=== PATIENT | female | born 1950 | race Caucasian/White ===

== ENCOUNTER 2017-09-03 10:08 | Emergency (ER) | payer BC, OTHER ==
[2017-09-03 10:13] VITALS: BMI 31.1
--- NOTE | 2017-09-03 10:27 | PDOC ---
History of Present Illness - General History Source: Patient Exam Limitations: No Limitations - History of Present Illness Initial Comments: 09/03/17 10:45 The patient is a 67 year old female, with a significant past medical history of HTN (on 15 mg Metoprolol), Anxiety and Depression who presents to the emergency department with cough and SOB for the past 5 days. Patient reports productive cough (yellow sputum) with difficulty breathing. Patient did not received this year's Flu vaccine. Patient denies any relief from OTC medications and presents to the ED for further evaluation. Upon evaluation, patients vital signs significant for 93% O2 saturation. Patient denies chest pain, headache or dizziness. Patient denies fever, chills, abdominal pain, nausea, vomit, diarrhea or constipation. Patient denies dysuria , frequency, urgency or hematuria. Patient denies sick contacts or recent travel. Allergies: NKA Past surgical history: Tubal ligation Social history: Everyday smoker PCP: None <Deann Billings - Last Filed: 09/03/17 10:45> <Edson Carrion - Last Filed: 09/03/17 14:03> - General Chief Complaint: Shortness of Breath Stated Complaint: RESPIRATORY Time Seen by Provider: 09/03/17 10:24 Past History <Deann Billings - Last Filed: 09/03/17 10:45> - Past Medical History COPD: No HTN: Yes Psychiatric Problems: Yes (ANXIETY, DEPRESSION) - Suicide/Smoking/Psychosocial Hx Smoking History: Current every day smoker Have you smoked in the past 12 months: Yes Number of Cigarettes Smoked Daily: 20 Information on smoking cessation initiated: Yes 'Breaking Loose' booklet given: 09/03/17 Hx Alcohol Use: No Drug/Substance Use Hx: No Substance Use Type: None <Edson Carrion - Last Filed: 09/03/17 14:03> - Past Medical History Allergies/Adverse Reactions: Allergies Allergy/AdvReac Type Severity Reaction Status Date / Time No Known Allergies Allergy Verified 09/03/17 10:10 Home Medications: Ambulatory Orders Escitalopram Oxalate [Lexapro -] 15 mg PO DAILY 07/27/14 Alprazolam [Xanax] 0.5 mg PO DAILY 09/03/17 Aspirin [ASA -] 81 mg PO DAILY 09/03/17 Lisinopril 10 mg PO HS 09/03/17 Metoprolol Succinate [Toprol Xl] 50 mg PO DAILY 09/03/17 Review of Systems - Review of Systems Able to Perform ROS?: Yes Comments:: 09/03/17 10:45 GENERAL/CONSTITUTIONAL: No fever or chills. No weakness. HEAD, EYES, EARS, NOSE AND THROAT: No change in vision. No ear pain or discharge. No sore throat. CARDIOVASCULAR: No chest pain. RESPIRATORY: + cough. +SOB. + wheezing. No hemoptysis. GASTROINTESTINAL: No nausea, vomiting, diarrhea or constipation. GENITOURINARY: No dysuria, frequency, or change in urination. MUSCULOSKELETAL: No joint or muscle swelling or pain. No neck or back pain. SKIN: No rash NEUROLOGIC: No headache, vertigo, loss of consciousness, or change in strength/ sensation. ENDOCRINE: No increased thirst. No abnormal weight change. HEMATOLOGIC/LYMPHATIC: No anemia, easy bleeding, or history of blood clots. ALLERGIC/IMMUNOLOGIC: No hives or skin allergy. <Deann Billings - Last Filed: 09/03/17 10:45> *Physical Exam - Vital Signs Last Vital Signs Temp Pulse Resp BP Pulse Ox 98.3 F 77 18 169/76 93 L 09/03/17 10:10 09/03/17 10:10 09/03/17 10:10 09/03/17 10:10 09/03/17 10:10 - Physical Exam Comments: 09/03/17 10:45 GENERAL: Awake, alert, and fully oriented, in no acute distress HEAD: No signs of trauma EYES: PERRLA, EOMI, sclera anicteric, conjunctiva clear ENT: Auricles normal inspection, hearing grossly normal, nares patent, oropharynx clear without exudates. Moist mucosa NECK: Normal ROM, supple, no lymphadenopathy, JVD, or masses LUNGS: +Wheezing bilaterally. Breath sounds equal. No crackles. HEART: Regular rate and rhythm, normal S1 and S2, no murmurs, rubs or gallops ABDOMEN: Soft, nontender, normoactive bowel sounds. No guarding, no rebound. No masses EXTREMITIES: Normal range of motion, no edema. No clubbing or cyanosis. No cords, erythema, or tenderness NEUROLOGICAL: Cranial nerves II through XII grossly intact. Normal speech, normal gait SKIN: Warm, Dry, normal turgor, no rashes or lesions noted. <Deann Billings - Last Filed: 09/03/17 10:45> - Vital Signs Last Vital Signs Temp Pulse Resp BP Pulse Ox 98.3 F 77 18 169/76 93 L 09/03/17 10:10 09/03/17 10:10 09/03/17 10:10 09/03/17 10:10 09/03/17 10:10 <Edson Carrion - Last Filed: 09/03/17 14:03> ED Treatment Course - LABORATORY CBC & Chemistry Diagram: 09/03/17 10:50 09/03/17 11:20 <Edson Carrion - Last Filed: 09/03/17 14:03> *DC/Admit/Observation/Transfer - Attestations Scribe Attestion: 09/03/17 10:45 Documentation prepared by Deann Billings, acting as medical apparatus model maker for Edson Carrion DO. <Deann Billings - Last Filed: 09/03/17 10:45> - Discharge Dispostion Admit: No - Attestations Physician Attestion: 09/03/17 10:26 I, Dr. Edson Carrion, attest that this document has been prepared under my direction and personally reviewed by me in its entirety. I further attest, that it accurately reflects all work, treatment, procedures and medical decision -making performed by me. <Edson Carrion - Last Filed: 09/03/17 14:03> Diagnosis at time of Disposition: Acute bronchitis Qualifiers: Bronchitis organism: other organism Qualified Code(s): J20.8 - Acute bronchitis due to other specified organisms - Discharge Dispostion Disposition: HOME Condition at time of disposition: Improved - Referrals Referrals: Guillermo Washington MD [Primary Care Provider] - - Patient Instructions Printed Discharge Instructions: DI for Acute Bronchitis Additional Instructions: Mrs Berman- Sorry that you are not feeling well. Cut back or quit the cigarettes. Finish both the Z-pack and the Medrol Dose pack. Return to us if worse. Follow up with your doctor later this week. Best- Dr. Edson Carrion
[2017-09-03] MEDS ORDERED: ALBUTEROL SO4 0.083% IH SOL 2.5 MG/3 ML VIAL.NEB. NEB ONE ×2 (10:40→11:38)
[2017-09-03] MEDS ORDERED: ALBUTEROL SO4 2.5/IPRATROPIUM 0.5 INH SOL 3 ML VIAL.NEB. NEB ONE ×2 (10:40→10:52)
[2017-09-03] MEDS ORDERED: methylPREDNISolone NA SUCC 125 MG/2 ML VIAL IVPUSH ONE (10:40)
[2017-09-03 10:52] VITALS: PULSE 75
[2017-09-03] MEDS ORDERED: methylPREDNISolone NA SUCC 125 MG/2 ML VIAL ONE (10:52)
[2017-09-03 11:27] LABS: BASOPHIL 0.7 % (0-2.0); EOSINOPHIL 2.2 % (0-4.5); MCH 32.3 pg (25.7-33.7); MCHC 33.6 g/dl (32.0-36.0); MEAN PLT VOLUME 8.2 fl (7.5-11.1); PLATELET COUNT 168 K/MM3 (134-434); RDW 13.4 % (11.6-15.6); WHITE BLOOD COUNT 9.4 K/mm3 (4.0-10.0)
[2017-09-03 11:52] LABS: ALBUMIN 3.6 g/dl (3.4-5.0); ANION GAP 5 (8-16); BILIRUBIN,TOTAL 0.6 mg/dL (0.2-1.0); CALCIUM 8.9 mg/dL (8.5-10.1); CO2 29 mmol/L (21-32); CREATININE 0.9 mg/dL (0.55-1.02); GLUCOSE,RANDOM 93 mg/dL (74-106); SGOT/AST 23 U/L (15-37); SGPT/ALT 29 U/L (12-78); TOT PROT 7.5 g/dl (6.4-8.2)
[2017-09-03 11:53] LABS: ALK PHOS 110 U/L (45-117)
[2017-09-03 13:55] VITALS: BP 131/78; TEMP 97.8
[2017-09-03] MEDS ORDERED: AZITHROMYCIN 250 MG TABLET PO ONE (13:58)
[2017-09-03] MEDS ORDERED: CEFTRIAXONE 1 GM in DEXTROSE 5%-WATER - 50 ML IVPB ONE (13:59)
[2017-09-03] MEDS ORDERED: CEFTRIAXONE 1 GM/50 ML BAG ONE (14:01)
[2017-09-03] MEDS ORDERED: AZITHROMYCIN 250 MG TABLET ONE (14:01)
== END 2017-09-03 14:43 | disposition home or self-care (01) ==
LOC: JER 10:08
PROC: 3E03329 Introduction of Other Anti-infective into Peripheral Vein, Percutaneous Approach (ICD-10-PCS; principal; 2017-09-03)
PROC: 3E033GC Introduction of Other Therapeutic Substance into Peripheral Vein, Percutaneous Approach (ICD-10-PCS; 2017-09-03)
PROC: 3E0337Z Introduction of Electrolytic and Water Balance Substance into Peripheral Vein, Percutaneous Approach (ICD-10-PCS; 2017-09-03)
PROC: 3E0F7GC Introduction of Other Therapeutic Substance into Respiratory Tract, Via Natural or Artificial Opening (ICD-10-PCS; 2017-09-03)
DX: J20.8 Acute bronchitis due to other specified organisms (principal); I10 Essential (primary) hypertension; F41.8 Other specified anxiety disorders
CPT/HCPCS: 36415; 71020-TC; 80053; 85025; 87040; 87804; 94640; 96365; 96375; 99284-25

== ENCOUNTER 2019-03-24 12:14 | Emergency (ER) | payer BC, OTHER ==
[2019-03-24 12:29] VITALS: BP 158/65; PULSE 80; TEMP 98.4; BMI 36.3
[2019-03-24] MEDS ORDERED: ALBUTEROL SO4 0.083% IH SOL 2.5 MG/3 ML VIAL.NEB. NEB ONE ×2 (12:39→12:57)
[2019-03-24] MEDS ORDERED: SODIUM CHLORIDE FOR INHALATION 3 ML VIAL.NEB IH ONE (12:39)
--- NOTE | 2019-03-24 12:46 | PDOC ---
History of Present Illness - General Chief Complaint: Respiratory Stated Complaint: Cold Symptoms Time Seen by Provider: 03/24/19 12:35 History Source: Patient (cough X 1wk) Exam Limitations: No Limitations - History of Present Illness Associated Symptoms: reports: cough, wheezing. denies: chest pain/soreness, dizziness, fever/chills, headache, lightheadedness, muscle aches, nasal congestion, nasal drainage, shortness of breath, sinus infection, sore throat Past History - Travel Traveled outside of the country in the last 30 days: No Close contact w/someone who was outside of country & ill: No - Past Medical History Allergies/Adverse Reactions: Allergies Allergy/AdvReac Type Severity Reaction Status Date / Time No Known Allergies Allergy Verified 03/24/19 12:29 Home Medications: Ambulatory Orders Escitalopram Oxalate [Lexapro -] 10 mg PO DAILY 07/27/14 Alprazolam [Xanax] 0.5 mg PO DAILY 09/03/17 Aspirin [ASA -] 81 mg PO DAILY 09/03/17 Lisinopril 10 mg PO HS 09/03/17 Metoprolol Succinate [Toprol Xl] 50 mg PO DAILY 09/03/17 Atorvastatin Ca [Lipitor] 40 mg PO HS 03/24/19 Azithromycin [Zithromax -] 250 mg PO UTDICT #6 tab 03/24/19 Benzonatate [Tessalon Pearls -] 100 mg PO TID #21 capsule 03/24/19 Chlorthalidone 25 mg PO DAILY 03/24/19 Levothyroxine [Synthroid -] 75 mcg PO DAILY 03/24/19 COPD: No HTN: Yes Hypercholesterolemia: Yes Psychiatric Problems: Yes (ANXIETY, DEPRESSION) - Suicide/Smoking/Psychosocial Hx Smoking History: Unknown if ever smoked Have you smoked in the past 12 months: Yes Number of Cigarettes Smoked Daily: 20 'Breaking Loose' booklet given: 09/03/17 Hx Alcohol Use: No Drug/Substance Use Hx: No Substance Use Type: None Review of Systems - Review of Systems Is the patient limited Azeri proficient: No Constitutional: No: Chills, Fever Respiratory: Yes: Cough, Wheezing, Productive cough. No: Orthopnea, Shortness of Breath, SOB with Exertion, Stridor Cardiac (ROS): No: Chest Pain, Irregular Heart Rate, Lightheadedness, Palpitations, Chest Tightness ABD/GI: No: Abdominal Distended, Nausea, Vomiting Neurological: No: Headache, Numbness, Paresthesia, Tingling, Unsteady Gait, Dizziness Endocrine: No: Excessive Sweating *Physical Exam - Vital Signs Last Vital Signs Temp Pulse Resp BP Pulse Ox 98.4 F 80 18 158/65 95 03/24/19 12:27 03/24/19 12:27 03/24/19 12:27 03/24/19 12:27 03/24/19 12:27 - Physical Exam General Appearance: Yes: Nourished HEENT: positive: EOMI, MED, TMs Normal Respiratory/Chest: positive: Wheezing (inspiratory wheezing noted in lower lung base) Cardiovascular: positive: Regular Rhythm, Regular Rate, S1, S2 Musculoskeletal: positive: Normal Inspection Integumentary: positive: Normal Color 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 pt is here with worsening cough exam consistent with inspiratory wheeze xray nebs CXR neg for PNA pt reassess, wheezing resolved, prednisone given Rx for zpak sent to pharmacy 03/24/19 13:32 *DC/Admit/Observation/Transfer Diagnosis at time of Disposition: Bronchitis - Discharge Dispostion Disposition: HOME - Prescriptions Prescriptions: Azithromycin [Zithromax -] 250 mg PO UTDICT #6 tab Benzonatate [Tessalon Pearls -] 100 mg PO TID #21 capsule - Referrals Referrals: Guillermo Washington MD [Primary Care Provider] - - Patient Instructions Printed Discharge Instructions: DI for Acute Bronchitis Additional Instructions: Your chest xray was negative for pneumonia today please take medication as prescribed Use inhaler if wheezing occurs as previously directly Increase hydration Follow up with your PCP Return to the ER If worsening symptoms occurs. - Post Discharge Activity
[2019-03-24] MEDS ORDERED: predniSONE 20 MG TABLET (UD) PO ONE (13:29)
[2019-03-24] MEDS ORDERED: predniSONE 20 MG TABLET (UD) ONE (13:30)
== END 2019-03-24 13:45 | disposition home or self-care (01) ==
LOC: JERFT 12:14
PROC: 3E0F7GC Introduction of Other Therapeutic Substance into Respiratory Tract, Via Natural or Artificial Opening (ICD-10-PCS; principal; 2019-03-24)
PROC: 3E0F7GC Introduction of Other Therapeutic Substance into Respiratory Tract, Via Natural or Artificial Opening (ICD-10-PCS; 2019-03-24)
DX: J40 Bronchitis, not specified as acute or chronic (principal); I10 Essential (primary) hypertension; E78.00 Pure hypercholesterolemia, unspecified; F41.9 Anxiety disorder, unspecified; F32.9 Major depressive disorder, single episode, unspecified
CPT/HCPCS: 71046-TC-FY; 94640; 99281-25

== ENCOUNTER 2022-01-12 19:20 | Inpatient (IN) | payer BC, OTHER ==
[2022-01-12] MEDS ORDERED: ACETAMINOPHEN 1000 MG/100 ML BAG IVPB ONE (19:57)
[2022-01-12] MEDS ORDERED: ACETAMINOPHEN INJECTION 100 ML IVPB ONE (20:08)
[2022-01-12] MEDS ORDERED: morphine SULFATE 4 MG/ML VIAL ONE (20:41)
[2022-01-12] MEDS: morphine CARPU-JECT 4 MG/1 ML DISP.SYRIN IVPUSH PRN (20:44)
[2022-01-12 20:52] LABS: HEMATOCRIT 36.5 % (32.4-45.2); HEMOGLOBIN 12.6 GM/dL (10.7-15.3); MCH 33.2 pg (25.7-33.7); MCHC 34.5 g/dl (32.0-36.0); MEAN CELL VOLUME 96.2 fl (80-96); MEAN PLT VOLUME 8.3 fl (7.5-11.1); PLATELET COUNT 125 10^3/uL (134-434); RDW 14.3 % (11.6-15.6); WHITE BLOOD COUNT 7.2 K/mm3 (4.0-10.0)
[2022-01-12 21:00] LABS: INR 1.21 (0.83-1.09); PROTHROMBIN TIME (PATIENT) 13.9 SEC (9.7-13.0)
[2022-01-12 21:13] LABS: CALCIUM 8.8 mg/dL (8.5-10.1)
[2022-01-12 21:14] LABS: ALBUMIN 4.2 g/dl (3.4-5.0)
[2022-01-12 21:16] LABS: CREATININE 0.8 mg/dL (0.55-1.3)
[2022-01-12 21:18] LABS: BILIRUBIN,TOTAL 1.4 mg/dL (0.2-1); TOT PROT 7.8 g/dl (6.4-8.2)
[2022-01-12] MEDS ORDERED: morphine CARPU-JECT 2 MG/1 ML DISP.SYRIN IVPUSH ONE (21:36)
[2022-01-12] MEDS ORDERED: HYDROmorphone HCl 2 MG/ML VIAL IVPUSH PRN (22:43)
[2022-01-12] MEDS ORDERED: LACTATED RINGERS SOLUTION 1,000 ML IV SCH (22:45)
[2022-01-12] MEDS ORDERED: ACETAMINOPHEN 1000 MG/100 ML BAG IVPB PRN (22:52)
[2022-01-12] MEDS ORDERED: ATORVASTATIN CA 40 MG TABLET (FP) PO SCH (22:58)
[2022-01-12] MEDS ORDERED: LISINOPRIL 10 MG TABLET PO SCH (22:58)
[2022-01-13] MEDS: morphine CARPU-JECT 4 MG/1 ML DISP.SYRIN IVPUSH PRN (01:27)
[2022-01-13 02:34] VITALS: BMI 35.5
[2022-01-13 07:04] LABS: BASO % 0.7 % (0-2.0); HEMATOCRIT 32.4 % (32.4-45.2); HEMOGLOBIN 11.5 GM/dL (10.7-15.3); LYMPH % 18.2 % (8-40); MCH 34.1 pg (25.7-33.7); MCHC 35.5 g/dl (32.0-36.0); MEAN CELL VOLUME 95.8 fl (80-96); MEAN PLT VOLUME 8.2 fl (7.5-11.1); MONO % 14.5 % (3.8-10.2); NEUT % 65.6 % (42.8-82.8); PLATELET COUNT 98 10^3/uL (134-434); RBC 3.38 M/mm3 (3.60-5.2); RDW 14.1 % (11.6-15.6); WHITE BLOOD COUNT 5.2 K/mm3 (4.0-10.0)
[2022-01-13] MEDS: morphine SULFATE 4 MG/ML VIAL IVPUSH PRN ×3 (07:04→20:21)
[2022-01-13 07:39] LABS: CALCIUM 8.5 mg/dL (8.5-10.1)
[2022-01-13 07:40] LABS: ALBUMIN 3.8 g/dl (3.4-5.0); BLOOD UREA NITROGEN 15.1 mg/dL (7-18); MAGNESIUM 1.3 mg/dL (1.8-2.4); PHOSPHOROUS 3.2 mg/dL (2.5-4.9)
[2022-01-13 07:41] LABS: BILIRUBIN,TOTAL 1.3 mg/dL (0.2-1)
[2022-01-13 07:43] LABS: CREATININE 0.8 mg/dL (0.55-1.3)
[2022-01-13] MEDS ORDERED: SODIUM CHLORIDE 1,000 ML IV SCH ×2 (08:30→17:37)
[2022-01-13] MEDS: MAGNESIUM SULF 50% (8.12 MEQ/2 ML-1 GM VIAL) IVPB SCH ×2 (08:54→11:21)
[2022-01-13] MEDS ORDERED: POLYETHYLENE GLYCOL (HEALTHYLAX) 3350 17 GM PACKET PO SCH (10:00)
[2022-01-13] MEDS ORDERED: amLODIPine BESYLATE 5 MG TABLET (FP) PO SCH (10:00)
[2022-01-13] MEDS ORDERED: CHOLECALCIFEROL (VIT D3) 1,000 UNIT (25 MCG) TABLET PO SCH (10:00)
[2022-01-13] MEDS ORDERED: ALPRAZolam 0.25 MG TABLET PO SCH (10:00)
[2022-01-13] MEDS ORDERED: ESCITALOPRAM OXALATE 10 MG TABLET PO SCH (10:00)
[2022-01-13] MEDS ORDERED: LEVOTHYROXINE NA 75 MCG TABLET (FP) PO SCH (10:00)
[2022-01-13] MEDS ORDERED: METOPROLOL TARTRATE 5 MG/5 ML VIAL IVPUSH ONE ×2 (14:02→17:37)
[2022-01-13] MEDS ORDERED: PROMETHAZINE HCL 25 MG/1 ML VIAL IVPUSH PRN ×2 (14:11→17:37)
[2022-01-13] MEDS ORDERED: ONDANSETRON 4 MG/2 ML VIAL IVPUSH PRN ×2 (14:11→17:37)
[2022-01-13] MEDS ORDERED: MIDAZOLAM HCL 2 MG/2 ML SINGLE DOSE VIAL ONE (14:14)
[2022-01-13] MEDS ORDERED: LACTATED RINGERS SOLUTION 1,000 ML IV SCH (14:15)
[2022-01-13] MEDS ORDERED: ceFAZolin SODIUM 1 GM VIAL ONE (14:15)
[2022-01-13] MEDS ORDERED: morphine CARPU-JECT 4 MG/1 ML DISP.SYRIN IVPUSH ONE (14:15)
[2022-01-13] MEDS ORDERED: MAG HYDROX/AL HYDROX/SIMETH 30 ML UNIT-DOSE CUP PO PRN (14:47)
[2022-01-13] MEDS ORDERED: ROCURONIUM BROMIDE 100 MG/10 ML VIAL ONE (15:25)
[2022-01-13] MEDS ORDERED: PROPOFOL 20 ML ONE (15:25)
[2022-01-13] MEDS ORDERED: LIDOCAINE HCL/PF 2% SDV 5ML VIAL ONE (15:28)
[2022-01-13] MEDS ORDERED: ETOMIDATE 20 MG/10 ML AMPUL IVPUSH ONE (15:28)
[2022-01-13] MEDS ORDERED: ceFAZolin SODIUM 1 GM VIAL IVPB ONE (15:30)
[2022-01-13] MEDS ORDERED: DEXAMETHASONE SOD PHOSPHATE 4 MG/1 ML VIAL ONE (15:48)
[2022-01-13] MEDS ORDERED: ONDANSETRON 4 MG/2 ML VIAL ONE (15:48)
[2022-01-13] MEDS ORDERED: TRANEXAMIC ACID 1000 MG/10 ML VIAL ONE (15:53)
[2022-01-13] MEDS ORDERED: SODIUM CHLORIDE 0.9% P/F 10 ML VIAL IJ ONE (16:28)
[2022-01-13] MEDS ORDERED: PHENYLEPHRINE HCL 10 MG/1 ML SINGLE DOSE VIAL ONE (16:28)
[2022-01-13] MEDS ORDERED: ePHEDrine SULFATE 50 MG/1 ML AMPULE ONE (16:28)
[2022-01-13] MEDS ORDERED: ACETAMINOPHEN INJECTION 100 ML IVPB ONE (16:29)
[2022-01-13] MEDS ORDERED: GLYCOPYRROLATE 0.2 MG/1 ML VIAL ONE (16:38)
[2022-01-13] MEDS ORDERED: NEOSTIGMINE METHYLSULFATE 0.5 MG/ML - 10 ML MDV ONE (16:38)
[2022-01-13] MEDS ORDERED: ACETAMINOPHEN 1000 MG/100 ML BAG IVPB PRN (17:37)
[2022-01-13 22:04] LABS: BASO % 0.1 % (0-2.0); HEMATOCRIT 28.7 % (32.4-45.2); HEMOGLOBIN 9.9 GM/dL (10.7-15.3); MCH 33.7 pg (25.7-33.7); MCHC 34.5 g/dl (32.0-36.0); MEAN CELL VOLUME 97.6 fl (80-96); MONO % 6.2 % (3.8-10.2); NEUT % 90.7 % (42.8-82.8); PLATELET COUNT 87 10^3/uL (134-434); RBC 2.94 M/mm3 (3.60-5.2); RDW 14.6 % (11.6-15.6)
[2022-01-13] MEDS: POLYETHYLENE GLYCOL (HEALTHYLAX) 3350 17 GM PACKET PO SCH ×2 (22:59→23:05)
[2022-01-13] MEDS: LISINOPRIL 10 MG TABLET PO SCH (23:00)
[2022-01-13] MEDS: ATORVASTATIN CA 40 MG TABLET (FP) PO SCH (23:00)
[2022-01-14] MEDS: morphine SULFATE 4 MG/ML VIAL IVPUSH PRN ×4 (02:43→20:15)
[2022-01-14] MEDS: LEVOTHYROXINE NA 75 MCG TABLET (FP) PO SCH (06:57)
[2022-01-14] MEDS: amLODIPine BESYLATE 5 MG TABLET (FP) PO SCH (09:14)
[2022-01-14] MEDS: PANTOPRAZOLE 40 MG TABLET PO SCH (09:14)
[2022-01-14] MEDS: CHOLECALCIFEROL (VIT D3) 1,000 UNIT (25 MCG) TABLET PO SCH (09:14)
[2022-01-14] MEDS: MULTIVITAMINS (DAILY MVI) TABLET (FP) PO SCH (09:14)
[2022-01-14] MEDS: ALPRAZolam 0.25 MG TABLET PO SCH (09:14)
[2022-01-14] MEDS: POLYETHYLENE GLYCOL (HEALTHYLAX) 3350 17 GM PACKET PO SCH ×2 (09:14→22:11)
[2022-01-14] MEDS: ESCITALOPRAM OXALATE 10 MG TABLET PO SCH (09:15)
[2022-01-14 09:50] LABS: BASO % 0.1 % (0-2.0); HEMATOCRIT 27.7 % (32.4-45.2); HEMOGLOBIN 9.8 GM/dL (10.7-15.3); LYMPH % 3.6 % (8-40); MCH 34.1 pg (25.7-33.7); MCHC 35.3 g/dl (32.0-36.0); MEAN CELL VOLUME 96.6 fl (80-96); MEAN PLT VOLUME 8.2 fl (7.5-11.1); MONO % 10.6 % (3.8-10.2); NEUT % 85.7 % (42.8-82.8); PLATELET COUNT 105 10^3/uL (134-434); RBC 2.87 M/mm3 (3.60-5.2); WHITE BLOOD COUNT 8.2 K/mm3 (4.0-10.0)
[2022-01-14] MEDS ORDERED: MULTIVITAMINS (DAILY MVI) TABLET (FP) PO SCH (10:00)
[2022-01-14] MEDS ORDERED: PANTOPRAZOLE 40 MG TABLET PO SCH (10:00)
[2022-01-14 10:15] LABS: CALCIUM 8.3 mg/dL (8.5-10.1)
[2022-01-14 10:16] LABS: MAGNESIUM 2.1 mg/dL (1.8-2.4)
[2022-01-14 10:19] LABS: CREATININE 1.1 mg/dL (0.55-1.3); PHOSPHOROUS 3.6 mg/dL (2.5-4.9)
[2022-01-14] MEDS ORDERED: ASPIRIN 325 MG TABLET PO SCH ×2 (12:00)
[2022-01-14] MEDS ORDERED: ZINC OXIDE 20% TOPICAL OINTMENT 30 GM TUBE TP ONE (20:54)
[2022-01-14] MEDS: LISINOPRIL 10 MG TABLET PO SCH (22:11)
[2022-01-14] MEDS: ATORVASTATIN CA 40 MG TABLET (FP) PO SCH (22:11)
[2022-01-14] MEDS: ASPIRIN 325 MG TABLET PO SCH (22:11)
[2022-01-15] MEDS: morphine SULFATE 4 MG/ML VIAL IVPUSH PRN ×2 (00:31→07:04)
[2022-01-15] MEDS: LEVOTHYROXINE NA 75 MCG TABLET (FP) PO SCH (07:04)
[2022-01-15 08:51] LABS: BASO % 0.6 % (0-2.0); EOS % 0.7 % (0-4.5); HEMATOCRIT 26.3 % (32.4-45.2); HEMOGLOBIN 9.2 GM/dL (10.7-15.3); LYMPH % 9.9 % (8-40); MCH 34.1 pg (25.7-33.7); MCHC 34.8 g/dl (32.0-36.0); MEAN CELL VOLUME 97.9 fl (80-96); MEAN PLT VOLUME 8.5 fl (7.5-11.1); MONO % 14.7 % (3.8-10.2); NEUT % 74.1 % (42.8-82.8); PLATELET COUNT 114 10^3/uL (134-434); RBC 2.69 M/mm3 (3.60-5.2); RDW 14.2 % (11.6-15.6); WHITE BLOOD COUNT 8.5 K/mm3 (4.0-10.0)
[2022-01-15 09:10] LABS: CALCIUM 8.5 mg/dL (8.5-10.1)
[2022-01-15 09:11] LABS: ALBUMIN 3.3 g/dl (3.4-5.0); BLOOD UREA NITROGEN 37.8 mg/dL (7-18); MAGNESIUM 1.9 mg/dL (1.8-2.4)
[2022-01-15 09:14] LABS: CREATININE 1.4 mg/dL (0.55-1.3); PHOSPHOROUS 3.7 mg/dL (2.5-4.9)
[2022-01-15 09:15] LABS: BILIRUBIN,TOTAL 1.2 mg/dL (0.2-1)
[2022-01-15 09:16] LABS: TOT PROT 6.3 g/dl (6.4-8.2)
[2022-01-15] MEDS: MULTIVITAMINS (DAILY MVI) TABLET (FP) PO SCH (09:43)
[2022-01-15] MEDS: amLODIPine BESYLATE 5 MG TABLET (FP) PO SCH (09:44)
[2022-01-15] MEDS: ALPRAZolam 0.25 MG TABLET PO SCH (09:44)
[2022-01-15] MEDS: PANTOPRAZOLE 40 MG TABLET PO SCH (09:44)
[2022-01-15] MEDS: CHOLECALCIFEROL (VIT D3) 1,000 UNIT (25 MCG) TABLET PO SCH (09:44)
[2022-01-15] MEDS: ASPIRIN 325 MG TABLET PO SCH ×2 (09:44→21:32)
[2022-01-15] MEDS: ESCITALOPRAM OXALATE 10 MG TABLET PO SCH (09:44)
[2022-01-15] MEDS: POLYETHYLENE GLYCOL (HEALTHYLAX) 3350 17 GM PACKET PO SCH ×2 (09:45→21:25)
[2022-01-15] MEDS ORDERED: SODIUM CHLORIDE 250 ML IV STA (16:14)
[2022-01-15] MEDS ORDERED: oxyCODONE HCL 5 MG TABLET PO PRN (16:15)
[2022-01-15] MEDS: SODIUM CHLORIDE 1,000 ML IV SCH (16:27)
[2022-01-15] MEDS: oxyCODONE HCL 5 MG TABLET PO PRN (21:24)
[2022-01-15] MEDS: LISINOPRIL 10 MG TABLET PO SCH (21:25)
[2022-01-15] MEDS: ATORVASTATIN CA 40 MG TABLET (FP) PO SCH (21:25)
[2022-01-16] MEDS: SODIUM CHLORIDE 1,000 ML IV SCH (05:23)
[2022-01-16] MEDS: LEVOTHYROXINE NA 75 MCG TABLET (FP) PO SCH (06:11)
[2022-01-16 09:19] LABS: BASO % 0.5 % (0-2.0); EOS % 0.9 % (0-4.5); HEMATOCRIT 26.3 % (32.4-45.2); HEMOGLOBIN 9.1 GM/dL (10.7-15.3); LYMPH % 8.4 % (8-40); MCH 33.9 pg (25.7-33.7); MCHC 34.6 g/dl (32.0-36.0); MEAN CELL VOLUME 97.8 fl (80-96); MEAN PLT VOLUME 8.4 fl (7.5-11.1); MONO % 12.4 % (3.8-10.2); NEUT % 77.8 % (42.8-82.8); PLATELET COUNT 113 10^3/uL (134-434); RBC 2.69 M/mm3 (3.60-5.2); RDW 14.5 % (11.6-15.6); WHITE BLOOD COUNT 8.2 K/mm3 (4.0-10.0)
[2022-01-16] MEDS: PANTOPRAZOLE 40 MG TABLET PO SCH (09:43)
[2022-01-16] MEDS: ASPIRIN 325 MG TABLET PO SCH ×2 (09:43→21:19)
[2022-01-16] MEDS: MULTIVITAMINS (DAILY MVI) TABLET (FP) PO SCH (09:43)
[2022-01-16] MEDS: ESCITALOPRAM OXALATE 10 MG TABLET PO SCH (09:43)
[2022-01-16] MEDS: CHOLECALCIFEROL (VIT D3) 1,000 UNIT (25 MCG) TABLET PO SCH (09:43)
[2022-01-16] MEDS: oxyCODONE HCL 5 MG TABLET PO PRN ×2 (09:44→18:29)
[2022-01-16] MEDS: POLYETHYLENE GLYCOL (HEALTHYLAX) 3350 17 GM PACKET PO SCH ×2 (09:44→21:19)
[2022-01-16] MEDS: ALPRAZolam 0.25 MG TABLET PO SCH (09:44)
[2022-01-16] MEDS: SENNOSIDES/DOCUSATE COMBO (SENNA PLUS) TABLET (UD) PO SCH ×2 (09:44→21:19)
[2022-01-16 09:47] LABS: CALCIUM 8.6 mg/dL (8.5-10.1)
[2022-01-16 09:48] LABS: MAGNESIUM 1.7 mg/dL (1.8-2.4)
[2022-01-16 09:50] LABS: CREATININE 1.1 mg/dL (0.55-1.3); PHOSPHOROUS 3.8 mg/dL (2.5-4.9)
[2022-01-16] MEDS ORDERED: GLYCERIN 1 RECTAL SUPPOSITORY, ADULT RC ONE (10:15)
[2022-01-16] MEDS: ATORVASTATIN CA 40 MG TABLET (FP) PO SCH (21:19)
[2022-01-17] MEDS ORDERED: ONDANSETRON 4 MG/2 ML VIAL IVPUSH ONE (05:53)
[2022-01-17] MEDS ORDERED: FAMOTIDINE 20 MG TABLET PO ONE (05:54)
[2022-01-17] MEDS: LEVOTHYROXINE NA 75 MCG TABLET (FP) PO SCH (06:25)
[2022-01-17 07:05] LABS: HEMATOCRIT 25.2 % (32.4-45.2); HEMOGLOBIN 8.7 GM/dL (10.7-15.3); MCH 33.4 pg (25.7-33.7); MCHC 34.7 g/dl (32.0-36.0); MEAN CELL VOLUME 96.5 fl (80-96); MEAN PLT VOLUME 8.5 fl (7.5-11.1); PLATELET COUNT 114 10^3/uL (134-434); RBC 2.61 M/mm3 (3.60-5.2); RDW 14.3 % (11.6-15.6); WHITE BLOOD COUNT 5.6 K/mm3 (4.0-10.0)
[2022-01-17 07:19] LABS: CALCIUM 8.4 mg/dL (8.5-10.1)
[2022-01-17 07:21] LABS: ALBUMIN 2.9 g/dl (3.4-5.0); BLOOD UREA NITROGEN 30.2 mg/dL (7-18)
[2022-01-17 07:23] LABS: CREATININE 0.8 mg/dL (0.55-1.3)
[2022-01-17 07:25] LABS: BILIRUBIN,TOTAL 1.3 mg/dL (0.2-1)
[2022-01-17] MEDS: oxyCODONE HCL 5 MG TABLET PO PRN ×2 (09:07→20:35)
[2022-01-17] MEDS: CHOLECALCIFEROL (VIT D3) 1,000 UNIT (25 MCG) TABLET PO SCH (09:36)
[2022-01-17] MEDS: PANTOPRAZOLE 40 MG TABLET PO SCH (09:37)
[2022-01-17] MEDS: POLYETHYLENE GLYCOL (HEALTHYLAX) 3350 17 GM PACKET PO SCH (09:37)
[2022-01-17] MEDS: ASPIRIN 325 MG TABLET PO SCH ×2 (09:37→21:52)
[2022-01-17] MEDS: ESCITALOPRAM OXALATE 10 MG TABLET PO SCH (09:37)
[2022-01-17] MEDS: ALPRAZolam 0.25 MG TABLET PO SCH (09:37)
[2022-01-17] MEDS: MULTIVITAMINS (DAILY MVI) TABLET (FP) PO SCH (09:37)
[2022-01-17] MEDS: SENNOSIDES/DOCUSATE COMBO (SENNA PLUS) TABLET (UD) PO SCH (09:38)
[2022-01-17] MEDS ORDERED: BISMUTH SUBSALICYLATE 262 MG/15 ML BTL PO ONE (21:09)
[2022-01-17] MEDS: ATORVASTATIN CA 40 MG TABLET (FP) PO SCH (21:10)
[2022-01-17] MEDS: MAG HYDROX/AL HYDROX/SIMETH 30 ML UNIT-DOSE CUP PO PRN (21:10)
[2022-01-17] MEDS: LISINOPRIL 10 MG TABLET PO SCH (21:12)
[2022-01-18] MEDS: MAG HYDROX/AL HYDROX/SIMETH 30 ML UNIT-DOSE CUP PO PRN ×2 (01:47→06:22)
[2022-01-18] MEDS: LEVOTHYROXINE NA 75 MCG TABLET (FP) PO SCH (06:16)
[2022-01-18 07:51] LABS: HEMATOCRIT 27.8 % (32.4-45.2); HEMOGLOBIN 9.7 GM/dL (10.7-15.3); MCH 33.7 pg (25.7-33.7); MCHC 34.8 g/dl (32.0-36.0); MEAN CELL VOLUME 96.8 fl (80-96); MEAN PLT VOLUME 7.7 fl (7.5-11.1); PLATELET COUNT 131 10^3/uL (134-434); RBC 2.87 M/mm3 (3.60-5.2); RDW 13.8 % (11.6-15.6); WHITE BLOOD COUNT 5.4 K/mm3 (4.0-10.0)
[2022-01-18] MEDS: oxyCODONE HCL 5 MG TABLET PO PRN ×3 (07:53→22:31)
[2022-01-18] MEDS: ASPIRIN 325 MG TABLET PO SCH ×2 (10:57→21:37)
[2022-01-18] MEDS: PANTOPRAZOLE 40 MG TABLET PO SCH (10:57)
[2022-01-18] MEDS: ALPRAZolam 0.25 MG TABLET PO SCH (10:58)
[2022-01-18] MEDS: CHOLECALCIFEROL (VIT D3) 1,000 UNIT (25 MCG) TABLET PO SCH (10:58)
[2022-01-18] MEDS: amLODIPine BESYLATE 5 MG TABLET (FP) PO SCH (10:58)
[2022-01-18] MEDS: ESCITALOPRAM OXALATE 10 MG TABLET PO SCH (10:58)
[2022-01-18] MEDS: MULTIVITAMINS (DAILY MVI) TABLET (FP) PO SCH (10:58)
[2022-01-18] MEDS ORDERED: LORATADINE 10 MG TABLET PO ONE (18:12)
[2022-01-18] MEDS: ATORVASTATIN CA 40 MG TABLET (FP) PO SCH (21:37)
[2022-01-18] MEDS: LISINOPRIL 10 MG TABLET PO SCH (21:37)
[2022-01-19] MEDS: oxyCODONE HCL 5 MG TABLET PO PRN ×2 (04:30→09:41)
[2022-01-19] MEDS: LEVOTHYROXINE NA 75 MCG TABLET (FP) PO SCH (06:09)
[2022-01-19 07:01] VITALS: PULSE 74
[2022-01-19 09:29] VITALS: BP 125/54; TEMP 98.8
[2022-01-19] MEDS: ASPIRIN 325 MG TABLET PO SCH (09:42)
[2022-01-19] MEDS: MULTIVITAMINS (DAILY MVI) TABLET (FP) PO SCH (09:42)
[2022-01-19] MEDS: MAG HYDROX/AL HYDROX/SIMETH 30 ML UNIT-DOSE CUP PO PRN (09:42)
[2022-01-19] MEDS: ESCITALOPRAM OXALATE 10 MG TABLET PO SCH (09:42)
[2022-01-19] MEDS: PANTOPRAZOLE 40 MG TABLET PO SCH (09:42)
[2022-01-19] MEDS: amLODIPine BESYLATE 5 MG TABLET (FP) PO SCH (09:43)
[2022-01-19] MEDS: ALPRAZolam 0.25 MG TABLET PO SCH (09:43)
[2022-01-19] MEDS: CHOLECALCIFEROL (VIT D3) 1,000 UNIT (25 MCG) TABLET PO SCH (09:43)
[2022-01-19] MEDS: POLYETHYLENE GLYCOL (HEALTHYLAX) 3350 17 GM PACKET PO SCH (09:47)
[2022-01-19] MEDS ORDERED: DOCUSATE SODIUM 100 MG CAPSULE (FP) PO ONE (11:13)
== END 2022-01-19 13:02 | DRG 522 ==
LOC: JER 19:20 → JERBED 21:49 → J6S 01-13 01:09
PROVIDERS: ADMIT Internal Medicine; ATTEND Internal Medicine
PROC: 0SRS0JZ Replacement of Left Hip Joint, Femoral Surface with Synthetic Substitute, Open Approach (ICD-10-PCS; principal; 2022-01-13 14:00)
DX: M80.052A Age-related osteoporosis with current pathological fracture, left femur, initial encounter for fracture (principal); E87.1 Hypo-osmolality and hyponatremia; I10 Essential (primary) hypertension; E03.9 Hypothyroidism, unspecified; D69.59 Other secondary thrombocytopenia; E78.5 Hyperlipidemia, unspecified; F41.9 Anxiety disorder, unspecified; R74.01 Elevation of levels of liver transaminase levels; F41.8 Other specified anxiety disorders
CPT/HCPCS: 36415; 72170-TC-FY; 73502-TC-LT-FY; 73700-TC-RT; 80048; 80053; 83036; 83735; 84100; 84443; 85025; 85027; 85610; 85730; 86850; 86900; 86901; 88304-TC; 88311-TC; 93005; 93010; 94010; 94760; 97116-GP; 97162-GP; 99285-25; C9803-CS; U0003; U0005

== ENCOUNTER 2022-02-08 02:11 | Inpatient (IN) | payer BC ==
[2022-02-08] MEDS ORDERED: ACETAMINOPHEN 500 MG TABLET (FP) PO ONE (03:53)
[2022-02-08] MEDS ORDERED: ACETAMINOPHEN 325 MG TABLET (FP) ONE (04:10)
[2022-02-08] MEDS ORDERED: morphine CARPU-JECT 4 MG/1 ML DISP.SYRIN IVPUSH ONE (04:11)
[2022-02-08] MEDS ORDERED: morphine SULFATE 4 MG/ML VIAL ONE (04:12)
[2022-02-08 04:24] LABS: BASO % 0.7 % (0-2.0); EOS % 3.3 % (0-4.5); HEMATOCRIT 25.8 % (32.4-45.2); HEMOGLOBIN 8.9 GM/dL (10.7-15.3); LYMPH % 17.3 % (8-40); MCH 31.8 pg (25.7-33.7); MCHC 34.7 g/dl (32.0-36.0); MEAN CELL VOLUME 91.6 fl (80-96); MEAN PLT VOLUME 7.9 fl (7.5-11.1); MONO % 12.4 % (3.8-10.2); NEUT % 66.3 % (42.8-82.8); PLATELET COUNT 133 10^3/uL (134-434); RBC 2.81 M/mm3 (3.60-5.2); RDW 13.6 % (11.6-15.6); WHITE BLOOD COUNT 5.1 K/mm3 (4.0-10.0)
[2022-02-08 04:32] LABS: INR 1.28 (0.83-1.09); PROTHROMBIN TIME (PATIENT) 14.7 SEC (9.7-13.0)
[2022-02-08 04:48] LABS: ALBUMIN 3.7 g/dl (3.4-5.0); BLOOD UREA NITROGEN 31.2 mg/dL (7-18); CALCIUM 9.3 mg/dL (8.5-10.1)
[2022-02-08 04:51] LABS: CREATININE 0.8 mg/dL (0.55-1.3)
[2022-02-08 04:54] LABS: BILIRUBIN,TOTAL 1.3 mg/dL (0.2-1); TOT PROT 7.2 g/dl (6.4-8.2)
[2022-02-08] MEDS ORDERED: ALPRAZolam 0.25 MG TABLET PO PRN (10:03)
[2022-02-08] MEDS ORDERED: HYDROmorphone HCl 2 MG/ML VIAL IM PRN (10:06)
[2022-02-08] MEDS ORDERED: metoPROLOL SUCCINATE 25 MG TAB.SR.24H (FP) ONE (10:20)
[2022-02-08] MEDS: amLODIPine BESYLATE 5 MG TABLET (FP) PO SCH (10:26)
[2022-02-08] MEDS: oxyCODONE HCL 5 MG TABLET PO PRN ×2 (10:26→21:13)
[2022-02-08] MEDS: ENOXAPARIN NA (PORCINE) 40 MG/0.4 ML DISP.SYRIN SQ SCH (10:29)
[2022-02-08 14:20] VITALS: BMI 35.5
[2022-02-08] MEDS: LISINOPRIL 10 MG TABLET PO SCH (21:13)
[2022-02-08] MEDS: ATORVASTATIN CA 40 MG TABLET (FP) PO SCH (21:13)
[2022-02-08] MEDS ORDERED: ERGOCALCIFEROL (VIT D2) 50,000 UNIT (1.25 MG) CAPSULE PO ONE (22:57)
[2022-02-09] MEDS: LEVOTHYROXINE NA 88 MCG TABLET (FP) PO SCH (06:18)
[2022-02-09] MEDS: metoPROLOL SUCCINATE 25 MG TAB.SR.24H (FP) PO SCH (09:46)
[2022-02-09] MEDS: ESCITALOPRAM OXALATE 10 MG TABLET PO SCH (09:46)
[2022-02-09] MEDS: ENOXAPARIN NA (PORCINE) 40 MG/0.4 ML DISP.SYRIN SQ SCH (09:47)
[2022-02-09] MEDS: amLODIPine BESYLATE 5 MG TABLET (FP) PO SCH (09:47)
[2022-02-09] MEDS ORDERED: LEVOTHYROXINE NA 75 MCG TABLET (FP) PO SCH (10:00)
[2022-02-09] MEDS ORDERED: CHLORTHALIDONE 25 MG TABLET PO SCH (10:00)
[2022-02-09 10:26] LABS: BASO % 0.8 % (0-2.0); EOS % 2.8 % (0-4.5); HEMATOCRIT 26.8 % (32.4-45.2); HEMOGLOBIN 9.1 GM/dL (10.7-15.3); LYMPH % 13.9 % (8-40); MCH 31.6 pg (25.7-33.7); MCHC 34.1 g/dl (32.0-36.0); MEAN CELL VOLUME 92.6 fl (80-96); MEAN PLT VOLUME 8.6 fl (7.5-11.1); MONO % 9.9 % (3.8-10.2); NEUT % 72.6 % (42.8-82.8); PLATELET COUNT 122 10^3/uL (134-434); RBC 2.89 M/mm3 (3.60-5.2); RDW 13.8 % (11.6-15.6); WHITE BLOOD COUNT 5.3 K/mm3 (4.0-10.0)
[2022-02-09 10:43] LABS: CALCIUM 9.6 mg/dL (8.5-10.1)
[2022-02-09 10:44] LABS: ALBUMIN 3.5 g/dl (3.4-5.0); BLOOD UREA NITROGEN 23.6 mg/dL (7-18)
[2022-02-09 10:47] LABS: CREATININE 0.8 mg/dL (0.55-1.3)
[2022-02-09 10:49] LABS: BILIRUBIN,TOTAL 1.2 mg/dL (0.2-1)
[2022-02-09] MEDS: oxyCODONE HCL 5 MG TABLET PO PRN ×2 (13:46→21:09)
[2022-02-09] MEDS: LISINOPRIL 10 MG TABLET PO SCH (21:09)
[2022-02-09] MEDS: ATORVASTATIN CA 40 MG TABLET (FP) PO SCH (21:10)
[2022-02-10] MEDS: LEVOTHYROXINE NA 88 MCG TABLET (FP) PO SCH (06:43)
[2022-02-10] MEDS ORDERED: ceFAZolin SODIUM 1 GM VIAL ONE (07:15)
[2022-02-10] MEDS ORDERED: PROPOFOL 20 ML ONE ×2 (07:17)
[2022-02-10] MEDS ORDERED: FENTANYL CITRATE/PF 50 MCG/ML VIAL ONE (07:32)
[2022-02-10] MEDS ORDERED: BUPIVACAINE HCL/PF 0.5% (5MG/ML) 10 ML VIAL ONE (07:42)
[2022-02-10] MEDS ORDERED: MIDAZOLAM HCL 2 MG/2 ML SINGLE DOSE VIAL ONE (08:04)
[2022-02-10] MEDS ORDERED: DEXAMETHASONE SOD PHOSPHATE 4 MG/1 ML VIAL ONE (08:10)
[2022-02-10] MEDS ORDERED: ONDANSETRON 4 MG/2 ML VIAL ONE (08:10)
[2022-02-10] MEDS ORDERED: ceFAZolin SODIUM 1 GM VIAL IVPB ONE (08:15)
[2022-02-10] MEDS ORDERED: TRANEXAMIC ACID 1000 MG/10 ML VIAL ONE ×2 (08:29→09:59)
[2022-02-10] MEDS ORDERED: PHENYLEPHRINE HCL 10 MG/1 ML SINGLE DOSE VIAL ONE (08:38)
[2022-02-10] MEDS ORDERED: LIDOCAINE HCL/PF 2% SDV 5ML VIAL ONE (08:45)
[2022-02-10] MEDS ORDERED: GLYCOPYRROLATE 0.2 MG/1 ML VIAL ONE (08:52)
[2022-02-10] MEDS ORDERED: VANCOMYCIN 1,000 MG VIAL (RESTRICTED TO ID ONLY) ONE ×2 (09:47→09:48)
[2022-02-10] MEDS ORDERED: LACTATED RINGERS SOLUTION 1,000 ML IV SCH ×2 (10:45→13:18)
[2022-02-10] MEDS: amLODIPine BESYLATE 5 MG TABLET (FP) PO SCH (10:49)
[2022-02-10] MEDS: ENOXAPARIN NA (PORCINE) 40 MG/0.4 ML DISP.SYRIN SQ SCH (10:49)
[2022-02-10] MEDS: ESCITALOPRAM OXALATE 10 MG TABLET PO SCH (10:49)
[2022-02-10] MEDS: metoPROLOL SUCCINATE 25 MG TAB.SR.24H (FP) PO SCH (10:50)
[2022-02-10] MEDS ORDERED: FENTANYL CITRATE/PF 50 MCG/ML VIAL IVPUSH PRN (12:01)
[2022-02-10] MEDS ORDERED: ONDANSETRON 4 MG/2 ML VIAL IVPUSH PRN (12:01)
[2022-02-10] MEDS ORDERED: ALPRAZolam 0.25 MG TABLET PO PRN (13:18)
[2022-02-10] MEDS: oxyCODONE HCL 5 MG TABLET PO PRN (17:12)
[2022-02-10] MEDS: CEFAZOLIN 2 GM in DEXTROSE 5%-WATER - 100 ML IVPB SCH (17:21)
[2022-02-10] MEDS ORDERED: CEFAZOLIN 2 GM in DEXTROSE 5%-WATER 100 ML IVPB SCH (18:00)
[2022-02-10] MEDS: HYDROmorphone HCl 2 MG/ML VIAL IM PRN (21:23)
[2022-02-10] MEDS: LISINOPRIL 10 MG TABLET PO SCH (21:23)
[2022-02-10] MEDS: ATORVASTATIN CA 40 MG TABLET (FP) PO SCH (21:23)
[2022-02-11] MEDS: CEFAZOLIN 2 GM in DEXTROSE 5%-WATER - 100 ML IVPB SCH ×2 (02:50→09:22)
[2022-02-11] MEDS: oxyCODONE HCL 5 MG TABLET PO PRN ×3 (04:42→20:04)
[2022-02-11] MEDS: LEVOTHYROXINE NA 88 MCG TABLET (FP) PO SCH (06:22)
[2022-02-11] MEDS: ESCITALOPRAM OXALATE 10 MG TABLET PO SCH (09:22)
[2022-02-11] MEDS: amLODIPine BESYLATE 5 MG TABLET (FP) PO SCH (09:22)
[2022-02-11] MEDS: ENOXAPARIN NA (PORCINE) 40 MG/0.4 ML DISP.SYRIN SQ SCH (09:26)
[2022-02-11] MEDS: metoPROLOL SUCCINATE 25 MG TAB.SR.24H (FP) PO SCH (09:27)
[2022-02-11 09:56] LABS: HEMATOCRIT 23.9 % (32.4-45.2); HEMOGLOBIN 8.4 GM/dL (10.7-15.3); MCH 32.2 pg (25.7-33.7); MCHC 35.1 g/dl (32.0-36.0); MEAN CELL VOLUME 91.9 fl (80-96); MEAN PLT VOLUME 8.3 fl (7.5-11.1); PLATELET COUNT 129 10^3/uL (134-434); RDW 13.9 % (11.6-15.6); WHITE BLOOD COUNT 10.5 K/mm3 (4.0-10.0)
[2022-02-11] MEDS ORDERED: ENOXAPARIN NA (PORCINE) 40 MG/0.4 ML DISP.SYRIN SQ SCH (10:00)
[2022-02-11 11:00] LABS: CALCIUM 8.9 mg/dL (8.5-10.1)
[2022-02-11 11:01] LABS: BLOOD UREA NITROGEN 25.5 mg/dL (7-18)
[2022-02-11 11:04] LABS: CREATININE 0.9 mg/dL (0.55-1.3)
[2022-02-11] MEDS: HYDROmorphone HCl 2 MG/ML VIAL IM PRN (12:44)
[2022-02-11] MEDS: LISINOPRIL 10 MG TABLET PO SCH (21:30)
[2022-02-11] MEDS: ATORVASTATIN CA 40 MG TABLET (FP) PO SCH (21:30)
[2022-02-11] MEDS: SENNOSIDES 8.6MG TABLET (FP) PO SCH (21:30)
[2022-02-11] MEDS ORDERED: DOCUSATE SODIUM 100 MG CAPSULE (FP) PO SCH (22:00)
[2022-02-11] MEDS: HYDROmorphone HCl 2 MG/ML VIAL IVPB PRN (22:25)
[2022-02-12] MEDS: LEVOTHYROXINE NA 88 MCG TABLET (FP) PO SCH (06:15)
[2022-02-12] MEDS: oxyCODONE HCL 5 MG TABLET PO PRN ×3 (08:33→23:09)
[2022-02-12 10:37] LABS: BASO % 0.6 % (0-2.0); EOS % 1.4 % (0-4.5); HEMATOCRIT 23.1 % (32.4-45.2); HEMOGLOBIN 7.9 GM/dL (10.7-15.3); LYMPH % 7.8 % (8-40); MCH 31.8 pg (25.7-33.7); MCHC 34.3 g/dl (32.0-36.0); MEAN CELL VOLUME 92.9 fl (80-96); MEAN PLT VOLUME 8.4 fl (7.5-11.1); MONO % 14.5 % (3.8-10.2); NEUT % 75.7 % (42.8-82.8); PLATELET COUNT 125 10^3/uL (134-434); RBC 2.49 M/mm3 (3.60-5.2); RDW 13.8 % (11.6-15.6); WHITE BLOOD COUNT 10.4 K/mm3 (4.0-10.0)
[2022-02-12] MEDS: amLODIPine BESYLATE 5 MG TABLET (FP) PO SCH (10:38)
[2022-02-12] MEDS: ESCITALOPRAM OXALATE 10 MG TABLET PO SCH (10:38)
[2022-02-12] MEDS: ENOXAPARIN NA (PORCINE) 40 MG/0.4 ML DISP.SYRIN SQ SCH (10:38)
[2022-02-12] MEDS: metoPROLOL SUCCINATE 25 MG TAB.SR.24H (FP) PO SCH (10:39)
[2022-02-12] MEDS: SENNOSIDES 8.6MG TABLET (FP) PO SCH ×2 (10:39→21:10)
[2022-02-12 10:50] LABS: BLOOD UREA NITROGEN 35.8 mg/dL (7-18); CALCIUM 8.6 mg/dL (8.5-10.1)
[2022-02-12 10:51] LABS: CREATININE 1.7 mg/dL (0.55-1.3)
[2022-02-12 10:52] LABS: BILIRUBIN,TOTAL 0.9 mg/dL (0.2-1); TOT PROT 5.7 g/dl (6.4-8.2)
[2022-02-12 11:02] LABS: ALBUMIN 2.7 g/dl (3.4-5.0)
[2022-02-12] MEDS: HYDROmorphone HCl 2 MG/ML VIAL IVPB PRN (12:31)
[2022-02-12] MEDS: POLYETHYLENE GLYCOL (HEALTHYLAX) 3350 17 GM PACKET PO SCH (21:09)
[2022-02-12] MEDS: ATORVASTATIN CA 40 MG TABLET (FP) PO SCH (21:10)
[2022-02-12] MEDS: LISINOPRIL 10 MG TABLET PO SCH (21:10)
[2022-02-13] MEDS: LEVOTHYROXINE NA 88 MCG TABLET (FP) PO SCH (06:10)
[2022-02-13] MEDS: oxyCODONE HCL 5 MG TABLET PO PRN (07:24)
[2022-02-13 08:55] LABS: HEMATOCRIT 32.3 % (32.4-45.2); HEMOGLOBIN 11.2 GM/dL (10.7-15.3); MCH 30.9 pg (25.7-33.7); MCHC 34.6 g/dl (32.0-36.0); MEAN CELL VOLUME 89.3 fl (80-96); MEAN PLT VOLUME 8.5 fl (7.5-11.1); PLATELET COUNT 116 10^3/uL (134-434); RBC 3.62 M/mm3 (3.60-5.2); RDW 14.9 % (11.6-15.6); WHITE BLOOD COUNT 8.7 K/mm3 (4.0-10.0)
[2022-02-13 09:40] LABS: CALCIUM 8.4 mg/dL (8.5-10.1)
[2022-02-13 09:41] LABS: ALBUMIN 2.9 g/dl (3.4-5.0)
[2022-02-13 09:44] LABS: BILIRUBIN,TOTAL 2.2 mg/dL (0.2-1)
[2022-02-13 09:45] LABS: TOT PROT 6.1 g/dl (6.4-8.2)
[2022-02-13 10:00] LABS: CREATININE 0.9 mg/dL (0.55-1.3)
[2022-02-13] MEDS: ENOXAPARIN NA (PORCINE) 40 MG/0.4 ML DISP.SYRIN SQ SCH (10:04)
[2022-02-13] MEDS: ESCITALOPRAM OXALATE 10 MG TABLET PO SCH (10:04)
[2022-02-13] MEDS: POLYETHYLENE GLYCOL (HEALTHYLAX) 3350 17 GM PACKET PO SCH ×2 (10:05→20:59)
[2022-02-13] MEDS: SENNOSIDES 8.6MG TABLET (FP) PO SCH ×2 (10:05→20:59)
[2022-02-13] MEDS: amLODIPine BESYLATE 5 MG TABLET (FP) PO SCH (11:37)
[2022-02-13] MEDS: metoPROLOL SUCCINATE 25 MG TAB.SR.24H (FP) PO SCH (11:38)
[2022-02-13] MEDS ORDERED: SODIUM PHOSPHATE/NA BIPHOS 133 ML ENEMA PR ONE (16:26)
[2022-02-13] MEDS: KETOROLAC TROMETHAMINE 15 MG/ML VIAL IVPUSH PRN (17:32)
[2022-02-13] MEDS: LISINOPRIL 10 MG TABLET PO SCH (20:59)
[2022-02-13] MEDS: ATORVASTATIN CA 40 MG TABLET (FP) PO SCH (20:59)
[2022-02-13] MEDS: ACETAMINOPHEN 325 MG TABLET (FP) PO PRN (21:00)
[2022-02-14] MEDS: KETOROLAC TROMETHAMINE 15 MG/ML VIAL IVPUSH PRN (01:14)
[2022-02-14] MEDS: LEVOTHYROXINE NA 88 MCG TABLET (FP) PO SCH (06:30)
[2022-02-14] MEDS: metoPROLOL SUCCINATE 25 MG TAB.SR.24H (FP) PO SCH (09:31)
[2022-02-14] MEDS: ENOXAPARIN NA (PORCINE) 40 MG/0.4 ML DISP.SYRIN SQ SCH (09:31)
[2022-02-14] MEDS: ESCITALOPRAM OXALATE 10 MG TABLET PO SCH (09:31)
[2022-02-14] MEDS: POLYETHYLENE GLYCOL (HEALTHYLAX) 3350 17 GM PACKET PO SCH ×2 (09:31→21:21)
[2022-02-14] MEDS: amLODIPine BESYLATE 5 MG TABLET (FP) PO SCH (09:31)
[2022-02-14] MEDS: SENNOSIDES 8.6MG TABLET (FP) PO SCH ×2 (09:32→21:21)
[2022-02-14] MEDS: oxyCODONE HCL 5 MG TABLET PO PRN ×2 (09:58→16:40)
[2022-02-14 11:09] LABS: HEMATOCRIT 33.5 % (32.4-45.2); HEMOGLOBIN 11.8 GM/dL (10.7-15.3); MCH 31.3 pg (25.7-33.7); MCHC 35.2 g/dl (32.0-36.0); MEAN PLT VOLUME 8.2 fl (7.5-11.1); PLATELET COUNT 147 10^3/uL (134-434); RBC 3.76 M/mm3 (3.60-5.2); RDW 15.1 % (11.6-15.6); WHITE BLOOD COUNT 9.4 K/mm3 (4.0-10.0)
[2022-02-14 11:52] LABS: CALCIUM 8.7 mg/dL (8.5-10.1)
[2022-02-14 11:53] LABS: BLOOD UREA NITROGEN 28.2 mg/dL (7-18); MAGNESIUM 1.4 mg/dL (1.8-2.4)
[2022-02-14 11:56] LABS: CREATININE 0.8 mg/dL (0.55-1.3)
[2022-02-14] MEDS ORDERED: MAGNESIUM SULF 50% (8.12 MEQ/2 ML-1 GM VIAL) IVPB ONE (18:07)
[2022-02-14] MEDS: ACETAMINOPHEN 325 MG TABLET (FP) PO PRN (21:20)
[2022-02-14] MEDS: ATORVASTATIN CA 40 MG TABLET (FP) PO SCH (21:21)
[2022-02-14] MEDS: LISINOPRIL 10 MG TABLET PO SCH (21:21)
[2022-02-15] MEDS: KETOROLAC TROMETHAMINE 15 MG/ML VIAL IVPUSH PRN ×2 (02:17→11:17)
[2022-02-15] MEDS: LEVOTHYROXINE NA 88 MCG TABLET (FP) PO SCH (06:23)
[2022-02-15] MEDS: oxyCODONE HCL 5 MG TABLET PO PRN ×2 (08:27→19:36)
[2022-02-15] MEDS: POLYETHYLENE GLYCOL (HEALTHYLAX) 3350 17 GM PACKET PO SCH ×2 (09:40→21:23)
[2022-02-15] MEDS: ESCITALOPRAM OXALATE 10 MG TABLET PO SCH (09:40)
[2022-02-15] MEDS: metoPROLOL SUCCINATE 25 MG TAB.SR.24H (FP) PO SCH (09:40)
[2022-02-15] MEDS: amLODIPine BESYLATE 5 MG TABLET (FP) PO SCH (09:40)
[2022-02-15] MEDS: SENNOSIDES 8.6MG TABLET (FP) PO SCH ×2 (09:40→21:23)
[2022-02-15] MEDS: ENOXAPARIN NA (PORCINE) 40 MG/0.4 ML DISP.SYRIN SQ SCH (09:40)
[2022-02-15] MEDS: ACETAMINOPHEN 325 MG TABLET (FP) PO PRN (15:18)
[2022-02-15] MEDS ORDERED: ALPRAZolam 0.25 MG TABLET PO ONE (20:19)
[2022-02-15] MEDS: ATORVASTATIN CA 40 MG TABLET (FP) PO SCH (21:23)
[2022-02-15] MEDS: LISINOPRIL 10 MG TABLET PO SCH (21:25)
[2022-02-16] MEDS: KETOROLAC TROMETHAMINE 15 MG/ML VIAL IVPUSH PRN ×2 (00:16→16:06)
[2022-02-16] MEDS: ACETAMINOPHEN 325 MG TABLET (FP) PO PRN (03:52)
[2022-02-16] MEDS ORDERED: ALPRAZolam 1 MG TABLET PO PRN (05:17)
[2022-02-16] MEDS: LEVOTHYROXINE NA 88 MCG TABLET (FP) PO SCH (06:05)
[2022-02-16] MEDS: oxyCODONE HCL 5 MG TABLET PO PRN (09:30)
[2022-02-16] MEDS: SENNOSIDES 8.6MG TABLET (FP) PO SCH ×2 (09:30→09:34)
[2022-02-16] MEDS: ENOXAPARIN NA (PORCINE) 40 MG/0.4 ML DISP.SYRIN SQ SCH (09:30)
[2022-02-16] MEDS: amLODIPine BESYLATE 5 MG TABLET (FP) PO SCH (09:30)
[2022-02-16] MEDS: ESCITALOPRAM OXALATE 10 MG TABLET PO SCH (09:31)
[2022-02-16] MEDS: metoPROLOL SUCCINATE 25 MG TAB.SR.24H (FP) PO SCH (09:31)
[2022-02-16] MEDS: POLYETHYLENE GLYCOL (HEALTHYLAX) 3350 17 GM PACKET PO SCH (09:33)
[2022-02-16 14:34] VITALS: BP 104/49; PULSE 59; TEMP 98.7
== END 2022-02-16 19:21 | DRG 467 ==
LOC: JER 02:11 → JERBED 05:57 → J6S 11:00
PROVIDERS: ADMIT Family Medicine; ATTEND Family Medicine
PROC: 30233N1 Transfusion of Nonautologous Red Blood Cells into Peripheral Vein, Percutaneous Approach (ICD-10-PCS; 2022-02-10)
PROC: 0SWS0JZ Revision of Synthetic Substitute in Left Hip Joint, Femoral Surface, Open Approach (ICD-10-PCS; principal; 2022-02-10 08:00)
PROC: 0QS706Z Reposition Left Upper Femur with Intramedullary Internal Fixation Device, Open Approach (ICD-10-PCS; 2022-02-10 08:00)
DX: S72.122A Displaced fracture of lesser trochanter of left femur, initial encounter for closed fracture (principal); M97.8XXA Periprosthetic fracture around other internal prosthetic joint, initial encounter; Z96.649 Presence of unspecified artificial hip joint; I10 Essential (primary) hypertension; E03.9 Hypothyroidism, unspecified; D69.6 Thrombocytopenia, unspecified; E78.5 Hyperlipidemia, unspecified; K59.00 Constipation, unspecified; M81.0 Age-related osteoporosis without current pathological fracture; D64.9 Anemia, unspecified; S72.92XA Unspecified fracture of left femur, initial encounter for closed fracture; Y93.89 Activity, other specified; Y92.89 Other specified places as the place of occurrence of the external cause; Y99.9 Unspecified external cause status
CPT/HCPCS: 36415; 36430; 73502-TC-LT-FY; 73552-TC-LT-FY; 74018-TC-FY; 80048; 80053; 82784; 83735; 83970; 84100; 84155; 84165; 84439; 84443; 84481; 85025; 85027; 85610; 85730; 86850; 86900; 86901; 86922; 88300-TC; 93005; 93010; 94760; 97010-GP; 97116-GP; 97162-GP; 99285-25; C9803-CS; P9058; U0003; U0005

== ENCOUNTER 2023-06-03 15:52 | Emergency (ER) | payer BC, OTHER ==
[2023-06-03 15:57] VITALS: TEMP 98.8; BMI 35.2
[2023-06-03] MEDS ORDERED: ALBUTEROL SO4 2.5/IPRATROPIUM 0.5 INH SOL 3 ML VIAL.NEB. NEB ONE ×2 (16:16→16:42)
[2023-06-03] MEDS ORDERED: DEXAMETHASONE SOD PHOSPHATE 20 MG/5 ML VIAL IVPB ONE (16:16)
[2023-06-03] MEDS ORDERED: methylPREDNISolone NA SUCC 125 MG/2 ML VIAL IVPUSH ONE (16:19)
[2023-06-03] MEDS ORDERED: methylPREDNISolone NA SUCC 125 MG/2 ML VIAL ONE (16:42)
[2023-06-03 16:51] LABS: HEMATOCRIT 35.1 % (32.4-45.2); HEMOGLOBIN 12.2 GM/dL (10.7-15.3); MCH 34.4 pg (25.7-33.7); MCHC 34.6 g/dl (32.0-36.0); MEAN CELL VOLUME 99.5 fl (80-96); MEAN PLT VOLUME 7.1 fl (7.5-11.1); PLATELET COUNT 162 10^3/uL (134-434); RBC 3.53 M/mm3 (3.60-5.2); RDW 13.6 % (11.6-15.6); WHITE BLOOD COUNT 12.9 K/mm3 (4.0-10.0)
[2023-06-03 17:06] LABS: POTASSIUM 3.9 mmol/L (3.5-5.1)
[2023-06-03 17:08] LABS: ALBUMIN 3.6 g/dl (3.4-5.0); BLOOD UREA NITROGEN 35.2 mg/dL (7-18); CALCIUM 8.4 mg/dL (8.5-10.1); MAGNESIUM 1.1 mg/dL (1.8-2.4)
[2023-06-03 17:13] LABS: BILIRUBIN,TOTAL 1.3 mg/dL (0.2-1); TOT PROT 7.6 g/dl (6.4-8.2)
[2023-06-03] MEDS ORDERED: MAGNESIUM SULF 50% (8.12 MEQ/2 ML-1 GM VIAL) IVPB ONE (17:29)
[2023-06-03] MEDS ORDERED: AZITHROMYCIN 250 MG TABLET PO ONE (17:30)
[2023-06-03 17:43] LABS: ANISOCYTOSIS 1+; MACROCYTOSIS 1+
[2023-06-03] MEDS ORDERED: AZITHROMYCIN 500 MG TABLET ONE (17:54)
[2023-06-03] MEDS ORDERED: CEFTRIAXONE 1 GM/50 ML BAG ONE (17:54)
[2023-06-03] MEDS ORDERED: MAGNESIUM 1GM/D5W - 1 GM/100 ML IVPB IVPB ONE (17:54)
[2023-06-03 20:01] VITALS: BP 127/88; PULSE 90; RESP 18
== END 2023-06-03 19:35 | disposition left against medical advice (07) ==
LOC: JER 15:52
PROC: 3E033NZ Introduction of Analgesics, Hypnotics, Sedatives into Peripheral Vein, Percutaneous Approach (ICD-10-PCS; principal; 2023-06-03)
PROC: 3E033GC Introduction of Other Therapeutic Substance into Peripheral Vein, Percutaneous Approach (ICD-10-PCS; 2023-06-03)
PROC: 3E033GC Introduction of Other Therapeutic Substance into Peripheral Vein, Percutaneous Approach (ICD-10-PCS; 2023-06-03)
PROC: 3E0F7GC Introduction of Other Therapeutic Substance into Respiratory Tract, Via Natural or Artificial Opening (ICD-10-PCS; 2023-06-03)
DX: R06.2 Wheezing (principal); R05.9 Cough, unspecified; J44.9 Chronic obstructive pulmonary disease, unspecified; Z20.822 Contact with and (suspected) exposure to COVID-19
CPT/HCPCS: 0241U-QW; 36415; 71045-TC-FY; 80053; 83735; 85025; 93005; 93010; 94640; 96374; 96375; 99285-25